=== PATIENT | male | born 1955 | race Caucasian/White ===

== ENCOUNTER 2021-06-20 04:41 | Inpatient (IN) ==
[2021-06-20 05:40] LABS: Basophils # 0.1 10*3/uL (0.0-0.2); Basophils % 0.8 % (0.0-0.8); Eosinophils # 0.1 10*3/uL (0.0-0.87); Eosinophils % 1.1 % (0.00-10.9); Hematocrit 47.8 VOL% (42.0-52.0); Hemoglobin 16.5 GM/DL (14.0-18.0); Immature Granulocytes % 0.5 %; Immature Granulocytes Absolute 0.05 #; Lymphocytes # 1.4 10*3/uL (1.4-4.0); Lymphocytes % 13.6 % (21.2-54.2); Mean Corpuscular HGB Conc 34.5 GM/DL (32-36); Mean Corpuscular Volume 93.5 FL (87-102); Mean Platelet Volume 9.1 FL (9.6-12.0); Monocytes % 9.3 % (1.7-12.7); Neutrophils % 74.7 % (38.7-73.9); Platelet Count 217 T/CUMM (130-400); Red Blood Count 5.11 MC/CUMM (3.8-5.5); Red Cell Distribution Width 12.5 % (9.3-17.3); White Blood Count 10.5 T/CUMM (4-12)
[2021-06-20 06:13] LABS: Alanine Aminotransferase 42 U/L (16-61); Albumin 4.1 G/DL (3.4-5.0); Alkaline Phosphatase 66 U/L (45-117); Amylase 77 U/L (25-115); Aspartate Amino Transferase 37 U/L (0-37); Blood Urea Nitrogen 19 MG/DL (7-18); Calcium 8.8 MG/DL (8.5-10.1); Carbon Dioxide 24 MMOL/L (21-32); Estimated Glom Filtration Rate 82 ML/MIN; Glucose 149 MG/DL (74-106); Osmolality,Calculated 281.5 MOS/KG (273-304); Potassium 3.2 MMOL/L (3.5-5.1); Sodium 139 MMOL/L (136-145); Total Protein 7.1 G/DL (6.4-8.2)
[2021-06-20] MEDS ORDERED: SODIUM CHLORIDE 0.9% 1,000 ML IV STA (06:41)
[2021-06-20] MEDS ORDERED: chlordiazePOXIDE 25 MG CAPSULE PO PRN (09:34)
[2021-06-20] MEDS ORDERED: GLUCAGON 1 MG VIAL IM PRN (09:35)
[2021-06-20] MEDS ORDERED: ONDANSETRON 4 MG/2 ML VIAL IV PRN (09:35)
[2021-06-20] MEDS ORDERED: DEXTROSE 50% 25 GM/50 ML VIAL IV PRN (09:35)
[2021-06-20 09:49] LABS: INR 1.1; PT Patient Result 11.7 SECS (10.5-12.0); Partial Thromboplastin Time 25.2 SECS (23.9-33.8)
[2021-06-20 11:39] LABS: Hematocrit 46.4 VOL% (42.0-52.0); Hemoglobin 16.1 GM/DL (14.0-18.0)
[2021-06-20] MEDS: INSULIN LISPRO 100 UNIT/ML SUBCUT SCH ×3 (12:25→20:20)
[2021-06-20] MEDS: SODIUM CHLORIDE 0.9% 1,000 ML IV SCH ×2 (13:26→20:23)
[2021-06-20 15:55] LABS: Hematocrit 46.1 VOL% (42.0-52.0); Hemoglobin 16.3 GM/DL (14.0-18.0)
[2021-06-20] MEDS: PANTOPRAZOLE 40 MG VIAL IV SCH (20:22)
[2021-06-20 21:26] LABS: Hematocrit 43.2 VOL% (42.0-52.0)
[2021-06-21] MEDS: SODIUM CHLORIDE 0.9% 1,000 ML IV SCH ×3 (04:20→20:07)
[2021-06-21 06:46] LABS: Basophils % 0.5 % (0.0-0.8); Eosinophils # 0.1 10*3/uL (0.0-0.87); Eosinophils % 0.6 % (0.00-10.9); Hematocrit 41.5 VOL% (42.0-52.0); Hemoglobin 14.3 GM/DL (14.0-18.0); Immature Granulocytes % 0.3 %; Immature Granulocytes Absolute 0.03 #; Lymphocytes # 1.2 10*3/uL (1.4-4.0); Lymphocytes % 14.3 % (21.2-54.2); Mean Corpuscular HGB Conc 34.5 GM/DL (32-36); Mean Corpuscular Volume 94.5 FL (87-102); Mean Platelet Volume 8.9 FL (9.6-12.0); Monocytes % 10.4 % (1.7-12.7); Neutrophils % 73.9 % (38.7-73.9); Platelet Count 173 T/CUMM (130-400); Red Blood Count 4.39 MC/CUMM (3.8-5.5); Red Cell Distribution Width 12.5 % (9.3-17.3); White Blood Count 8.6 T/CUMM (4-12)
[2021-06-21 07:17] LABS: Bilirubin,Direct 0.25 MG/DL (0.0-0.20); Bilirubin,Total 1.2 MG/DL (0.20-1.00); Calcium 8.1 MG/DL (8.5-10.1); Osmolality,Calculated 278.4 MOS/KG (273-304); Potassium 3.3 MMOL/L (3.5-5.1)
[2021-06-21] MEDS: INSULIN LISPRO 100 UNIT/ML SUBCUT SCH ×4 (07:40→20:10)
[2021-06-21] MEDS ORDERED: MAGNESIUM SULF RIDER 4 GM/100 ML PREMIX IV PRN (08:09)
[2021-06-21] MEDS ORDERED: MAGNESIUM SULF RIDER 2 GM/50 ML PREMIX IV PRN (08:09)
[2021-06-21] MEDS: MULTIVITAMIN (CENTRUM) TABLET PO SCH (09:01)
[2021-06-21] MEDS: THIAMINE 100 MG TABLET PO SCH (09:01)
[2021-06-21] MEDS: FOLIC ACID 1 MG TABLET PO SCH (09:01)
[2021-06-21] MEDS: PANTOPRAZOLE 40 MG VIAL IV SCH ×2 (09:01→20:10)
[2021-06-21 12:35] LABS: Hematocrit 43.3 VOL% (42.0-52.0); Hemoglobin 15.1 GM/DL (14.0-18.0)
[2021-06-22] MEDS: SODIUM CHLORIDE 0.9% 1,000 ML IV SCH ×2 (03:49→14:50)
[2021-06-22 05:58] LABS: Basophils # 0.1 10*3/uL (0.0-0.2); Basophils % 0.7 % (0.0-0.8); Eosinophils # 0.1 10*3/uL (0.0-0.87); Eosinophils % 1.2 % (0.00-10.9); Hematocrit 38.9 VOL% (42.0-52.0); Hemoglobin 13.4 GM/DL (14.0-18.0); Immature Granulocytes % 0.4 %; Immature Granulocytes Absolute 0.03 #; Lymphocytes # 1.5 10*3/uL (1.4-4.0); Lymphocytes % 17.4 % (21.2-54.2); Mean Corpuscular HGB Conc 34.4 GM/DL (32-36); Mean Corpuscular Volume 93.1 FL (87-102); Mean Platelet Volume 9.2 FL (9.6-12.0); Monocytes % 8.6 % (1.7-12.7); Neutrophils % 71.7 % (38.7-73.9); Platelet Count 171 T/CUMM (130-400); Red Blood Count 4.18 MC/CUMM (3.8-5.5); Red Cell Distribution Width 12.3 % (9.3-17.3); White Blood Count 8.3 T/CUMM (4-12)
[2021-06-22 06:36] LABS: Calcium 8.1 MG/DL (8.5-10.1); Osmolality,Calculated 280.1 MOS/KG (273-304); Potassium 3.1 MMOL/L (3.5-5.1)
[2021-06-22] MEDS: INSULIN LISPRO 100 UNIT/ML SUBCUT SCH ×4 (08:14→21:45)
[2021-06-22] MEDS: PANTOPRAZOLE 40 MG VIAL IV SCH ×2 (09:31→21:45)
[2021-06-22] MEDS: THIAMINE 100 MG TABLET PO SCH ×2 (09:58→11:56)
[2021-06-22] MEDS: FOLIC ACID 1 MG TABLET PO SCH ×2 (09:58→11:56)
[2021-06-22] MEDS: MULTIVITAMIN (CENTRUM) TABLET PO SCH ×2 (09:58→11:56)
[2021-06-22] MEDS: POTASSIUM CHLORIDE 20 MEQ TABLET PO PRN ×3 (11:55→17:03)
[2021-06-22] MEDS: POTASSIUM CHLORIDE INJ 20 MEQ in LACTATED RINGERS 1,000 ML IV SCH (16:20)
[2021-06-23 05:44] LABS: Basophils # 0.1 10*3/uL (0.0-0.2); Eosinophils # 0.2 10*3/uL (0.0-0.87); Eosinophils % 2.7 % (0.00-10.9); Hematocrit 38.9 VOL% (42.0-52.0); Hemoglobin 13.4 GM/DL (14.0-18.0); Immature Granulocytes % 0.2 %; Immature Granulocytes Absolute 0.01 #; Lymphocytes # 1.3 10*3/uL (1.4-4.0); Lymphocytes % 22.2 % (21.2-54.2); Mean Corpuscular HGB Conc 34.4 GM/DL (32-36); Mean Corpuscular Volume 93.5 FL (87-102); Mean Platelet Volume 9.4 FL (9.6-12.0); Monocytes % 7.6 % (1.7-12.7); Neutrophils % 66.3 % (38.7-73.9); Platelet Count 184 T/CUMM (130-400); Red Blood Count 4.16 MC/CUMM (3.8-5.5); Red Cell Distribution Width 12.2 % (9.3-17.3); White Blood Count 5.8 T/CUMM (4-12)
[2021-06-23 06:03] LABS: Calcium 8.4 MG/DL (8.5-10.1); Osmolality,Calculated 279.3 MOS/KG (273-304); Potassium 3.8 MMOL/L (3.5-5.1)
[2021-06-23] MEDS: POTASSIUM CHLORIDE INJ 20 MEQ in LACTATED RINGERS 1,000 ML IV SCH (06:10)
[2021-06-23] MEDS: FOLIC ACID 1 MG TABLET PO SCH (08:39)
[2021-06-23] MEDS: INSULIN LISPRO 100 UNIT/ML SUBCUT SCH (08:39)
[2021-06-23] MEDS: MULTIVITAMIN (CENTRUM) TABLET PO SCH (08:39)
[2021-06-23] MEDS: THIAMINE 100 MG TABLET PO SCH (08:39)
[2021-06-23] MEDS: POTASSIUM CHLORIDE 20 MEQ TABLET PO PRN (08:39)
[2021-06-23] MEDS: PANTOPRAZOLE 40 MG VIAL IV SCH (09:44)
[2021-06-23 10:02] VITALS: BP 155/75
== END 2021-06-23 11:49 | disposition home or self-care (01) | DRG 813 ==
LOC: N.EDINP 04:41 → N.ED 04:41 → SUATTDRO 09:35 → N.EDINP 10:41 → N.TELES 10:58
PROVIDERS: ADMIT Internal Medicine; ATTEND Internal Medicine